=== PATIENT | male | born 1995 | race Caucasian/White ===

== ENCOUNTER 2025-01-08 08:09 | Emergency (ER) | payer SELFPAY ==
--- NOTE | ~2025-01-08 | XR_ITS ---
EXAMINATION: XR chest 2V DATE: 01/08/2025 09:18 INDICATION: Cough. Asbestos exposure. TECHNIQUE: PA and lateral views of the chest were obtained. COMPARISON: None FINDINGS: The lungs are clear with no focal airspace opacities, pulmonary edema, pleural effusion or pneumothor ax. The cardiomediastinal silhouette is normal. Visualized bones and soft tissues are unremarkable. IMPRESSION: 1. Normal chest radiograph. Reviewed, dictated and finalized at location B. IMPRESSION: 1. Normal chest radiograph.
--- OUTSIDE RECORDS SUMMARY | 2025-01-08 08:12 | XMS_ITS | Clinical Summary ---
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 AFTER 1-2 weeks increase TO twice a day if anxiety not controlled AND no other symptoms. 1 Active hydrOXYzine 25 MG tablet Take 25 mg by mouth as needed in the morning and 25 mg as needed at noon and 25 mg as needed in the evening. FOR ANXIETY 1 Active lisinopril 10 MG tablet Take 10 mg by mouth in the morning. 1 Active CAPLYTA 42 MG Cap Take 1 capsule by mouth daily. 1 Active mirtazapine 15 MG tablet Take 15 mg by mouth nightly at bedtime. at bedtime 1 Active prazosin 1 MG capsule Take 1 mg by mouth nightly at bedtime. at bedtime 1 Active risperiDONE 2 MG tablet Take 2 mg by mouth in the morning. 1 Active traZODone 100 MG tablet Take 100 mg by mouth nightly at bedtime. 1 Active venlafaxine 75 MG tablet Take 75 mg by mouth in the morning and 75 mg before bedtime. 1 Active ondansetron (ZOFRAN-ODT) 4 MG disintegrating tablet Take 1 tablet (4 mg total) by mouth every 8 (eight) hours as needed for Nausea. 20 tablet 2 Active Active Problems No known active problems Immunizations Immunization Administration Dates Next Due Dtap (Acel-Immune) 10/11/2001 MMR (MMRII) 10/11/2001 Polio IPV (Ipol) 10/11/2001 Tdap (Generic) 03/02/2007 Varicella (Varivax) 01/31/2002 Social History Tobacco Use Types Packs/Day Years Used Date Smoking Tobacco: Former Cigarettes Smokeless Tobacco: Never Alcohol Use Standard Drinks/Week Comments Not Currently 0 (1 standard drink = 0.6 oz pur e alcohol) 1 year sober Sex and Gender Information Value Date Recorded Sex Assigned at Not on file Legal Sex Male 8:28 PM CDT Gender Identity Not on file Sexual Orientation Not on file Last Filed Vital Signs Vital Sign Reading Time Taken Comments Blood Pressure 154/98 04/27/2022 8:54 PM CDT Pulse 88 04/28/2023 6:30 PM CDT Temperature 36.5 C (97.7 F) 04/28/2023 6:30 PM CDT Respiratory Rate 18 04/28/2023 6:30 PM CDT Oxygen Saturation 98% 04/28/2023 6:30 PM CDT Inhaled Oxygen Concentration - - Weight 88.5 kg (195 lb) 04/28/2023 6:30 PM CDT Height 177.8 cm (5' 10) 04/28/2023 6:30 PM CDT Body Mass Index 27.98 04/28/2023 6:30 PM CDT Plan of Treatment Health Maintenance Due Date Last Done Comments Annual Physical 1999 Hepatitis C 2014 Hepatitis B Vaccines (1 of 3 - 19+ 3-dose series) 2015 DTaP, Tdap and Td Vaccines ( 3 - Td or Tdap) 03/02/2017 03/02/2007, 10/11/2001 COVID-19 Vaccine (2023-2 5 season) 2024 07/17/2020, 06/26/2020 HPV Vaccines Aged Out No longer eligi ble based on patient's age to complete this topic Meningococcal B Vaccine Aged Out No l onger eligible based on patient's age to complete this topic Meningococcal Vaccine Aged Out No darryn patricia eligible based on patient's age to complete this topic Pneumococcal Vaccine: Pediatrics (0 to 5 Years) and At-Risk Patients (6 to 49 Years) Aged Out No longer eligible b ased on patient's age to complete this topic RSV Immunizations Under 20 Months Aged Out No longer eligible b ased on patient's age to complete this topic [place] [address] [place] [address] Care Teams Rotoformer Backtender Relationship Specialty Start Date End Date None, Provider, PCP - General UNKNOWN PHYSICIAN SPECIALTY 04/27/22 Jamey Palmer MD [address] [place] [address] [place] [address] [facility] 04/27/22
[2025-01-08 08:14] VITALS: BP 173/97; PULSE 92; RESP 18; TEMP 36.9; O2SAT 97; O2SAT 98
--- NOTE | 2025-01-08 09:07 | ED_ITS ---
HPI - General Adult General Chief complaint: Upper Respiratory Infection Stated complaint: COUGH Time Seen by Provider: 01/08/25 08:12 History of Present Illness HPI narrative: Patient is a 29-year-old male who presents ER with cough. Ongoing over the last few days. Associated with sinus congestion postnasal drip. Cough is worsening morning but persist throughout the day. No fevers or chills. No chest discomfort. History of asthma when younger. Patient has significant exposure to sick patients and is concerned he may have pneumonia. Related Data Allergies Allergy/AdvReac Type Severity Reaction Status Date / Time No Known Allergies Allergy Verified 01/08/25 08:14 Review of Systems Constitutional: Constitutional: Reports no additional constitutional complaints ENT: Reports system reviewed and no additional complaints, except as documented Cardiovascular: Cardiovascular: Reports no additional cardiovascular complaints Respiratory: Respiratory: Reports no additional respiratory complaints PMF Past Medical History Medical History (Updated 01/08/25 @ 10:20 by Eliazar Perez MD) Healthy adult male Surgical History Surgical History (Updated 01/08/25 @ 09:08 by Eliazar Perez MD) No history of previous surgery Exam Narrative: GENERAL: Well-appearing, well-nourished, and in no acute distress. HEAD: Normocephalic, atraumatic. ENT: Mucous membranes moist. TMs normal bilaterally. NECK: Supple. CHEST: Clear to auscultation. No respiratory distress. HEART: Regular rate and rhythm. Normal peripheral pulses. EXTREMITIES: Normal range of motion. No edema. SKIN: Warm, dry, no rash. NEURO: Alert and oriented x3. PSYCH: Normal mood and affect. Course Course Emergency Course: Blood pressure improved 115/72 with rest. No pneumonia. Symptoms consistent with URI. Recommend supportive care. Discharge. Vital Signs Vital signs: Vital Signs Temperature 98.4 F 01/08/25 08:14 Pulse Rate 92 01/08/25 08:14 Respiratory Rate 18 01/08/25 08:14 Blood Pressure 173/97 H 01/08/25 08:14 Pulse Oximetry 98 01/08/25 08:14 Oxygen Delivery Room Air 01/08/25 08:14 Temperature 98.4 F 01/08/25 08:14 Pulse Rate 80 01/08/25 10:15 Respiratory Rate 18 01/08/25 10:15 Blood Pressure 121/76 01/08/25 10:15 Pulse Oximetry 96 07/02/25 10:15 Oxygen Delivery Room Air 01/08/25 08:14 Medical Decision Making Vital Signs Vital Signs: Vital Signs Temperature 98.4 F 01/08/25 08:14 Pulse Rate 92 01/08/25 08:14 Respiratory Rate 18 01/08/25 08:14 Blood Pressure 173/97 H 01/08/25 08:14 Pulse Oximetry 98 01/08/25 08:14 Oxygen Delivery Room Air 01/08/25 08:14 Temperature 98.4 F 01/08/25 08:14 Pulse Rate 80 01/08/25 10:15 Respiratory Rate 18 01/08/25 10:15 Blood Pressure 121/76 01/08/25 10:15 Pulse Oximetry 96 01/08/25 10:15 Oxygen Delivery Room Air 01/08/25 08:14 Lab Data Labs: Lab Results 01/08/25 Range/Units 08:44 Influenza A (RT-PCR) Negative (Negative) Influenza B (RT-PCR) Negative (Negative) RSV (RT-PCR) Negative (Negative) SARS-CoV-2 RNA (RT-PCR) Negative (Negative) Imaging Data Radiologist's impression: ITS Impressions Chest X-Ray 01/08/25 10:03 IMPRESSION: 1. Normal chest radiograph. Discharge Plan Discharge Clinical Impression: Upper respiratory infection Patient Disposition: Home Condition: Stable Instructions: Upper Respiratory Infection (ED) Additional Instructions: As discussed you have a viral illness. Unfortunately there are no specific medications we can give you to make the illness end faster. Antibiotics do not work for viral illnesses. However, you can take Acetaminophen or Ibuprofen to help with fevers and pain. Stay well hydrated and rested. Return to the emergency department if your fevers and chills continue to worse after 5 days, if you develop worsening cough with thick sputum, or are unable to stay hydrated. Contact your primary care provider in the next few days for a re-evaluation and to make sure your symptoms are improving. Patient Language: Turkish Prescriptions: New guaifenesin 600 mg tablet extended release 12hr 600 mg PO BID Qty: 14 0RF fluticasone propionate [Flonase Allergy Relief] 50 mcg/actuation spray,suspension 1 spray intranasal BID Qty: 16 0RF Rx Instructions: administer into each nostril Follow-up/Referrals: Sajid,Keegan M., MD [Physician] - 1 Week UNKNOWN,DOCTOR [Primary Care Provider] -
[2025-01-08 09:24] LABS: Influenza A QL RT-PCR Negative (Negative); Influenza B QL RT-PCR Negative (Negative); RSV RNA, RT-PCR Negative (Negative); SARS-CoV-2 RNA PCR Negative (Negative)
[2025-01-08 10:15] VITALS: BP 121/76; PULSE 80; RESP 18; O2SAT 96
[2025-01-08 10:31] VITALS: BP 122/85; PULSE 80; RESP 18; TEMP 36.7; O2SAT 96
== END 2025-01-08 10:34 | disposition home or self-care (01) ==
PROVIDERS: Emergency Provider Emergency Medicine
DX: J06.9 Acute upper respiratory infection, unspecified (principal); Z20.822 Contact with and (suspected) exposure to COVID-19
CPT/HCPCS: 71046; 87637; 99283